=== PATIENT | male | born 1995 | race Caucasian/White ===

== ENCOUNTER 2016-11-07 12:23 | Emergency (ER) | payer BC ==
[~2016-11-07] VITALS: Ht 172.7 cm; Wt 72.7 kg
[2016-11-07 12:30] VITALS: TEMP 100
[2016-11-07] MEDS ORDERED: ZITHROMAX Z PA250 MG PO (12:45)
[2016-11-07] MEDS ORDERED: CLEOCIN HC150 MG/CAP PO (13:48)
[2016-11-07 14:34] VITALS: BP 143/78; PULSE 100
== END 2016-11-07 14:35 | disposition home or self-care (01) ==
LOC: COL.ER 12:23
DX: J36 Peritonsillar abscess (principal)
CPT/HCPCS: J1100